=== PATIENT | female | born 1935 | race Caucasian/White ===

== ENCOUNTER → 2018-12-24 07:53 | Outpatient (CLI) | payer MEDICARE, SELFPAY ==
[2018-12-14 14:59] VITALS: BMI 30.5
[2018-12-17 11:49] LABS: Anion Gap 6 (5-15); BUN 18 mg/dL (7-18); BUN/Creat Ratio 18.4 RATIO (10-20); Calcium,Total 8.9 mg/dL (8.5-10.1); Chloride 106 mmol/L (98-107); Creatinine, Serum 0.98 mg/dL (0.55-1.02); EST Glomerular Filtration Rate 58 mL/min (>60); Est Glom Filt Rate - Afr Amer 70 mL/min (>60); Glucose 155 mg/dL (74-106); Potassium 4.2 mmol/L (3.5-5.1); Sodium Level 139 mmol/L (136-145)
--- NOTE | 2018-12-24 07:55 | CT_ITS ---
STUDY: CTA OF THE ABDOMINAL AORTA AND BILATERAL LOWER EXTREMITIES REASON FOR EXAM: Female, 83 years old. Infection of the right toe. RADIATION DOSAGE (If Supplied By Facility): CTDIvol = ( 9.97 ) mGy, DLP = ( 1158.89 ) mGycm TECHNIQUE: Axial CT angiography multi-detector data acquisition was obtained from the dome of the liver to the level of the ankles following intravenous administration of 100 IV Ultravist 370. Axial images and MIP images were reconstructed from the axial data set. Post-processing of the angiographic images was performed, with multiplanar reformation and 3D reconstruction. Individualized dose optimization techniques were used for this CT. TECHNICAL QUALITY: Good COMPARISON: None. Descriptors of Narrowing: None (0%) Mild (< 50%) Moderate (50-70%) Severe (70-90%) Subtotal/Total Occlusion (90-100%) Non-Evaluable (technically non-diagnostic FINDINGS: Diffuse fatty infiltration of the liver. Small hiatal hernia. Coronary artery calcifications. Bilateral renal cortical thinning with a small bilateral renal cysts. Abdominal aorta: Nonstenotic calcified atherosclerotic plaques. Celiac and superior mesenteric arteries: Atherosclerotic calcification at the origin of both the celiac and superior mesenteric arteries. Inferior mesenteric artery: Not visualized. Right renal artery(arteries): Moderate stenotic plaque formation at the origin of the right renal artery. Left renal artery(arteries): Severe narrowing at the origin of the left renal artery. Right common iliac artery: Multiple calcified atherosclerotic plaque causing focal areas of tight narrowing. Right external iliac artery: Multiple atherosclerotic plaque formation causing moderate to severe stenosis. Right internal iliac artery: No demonstrated narrowing. Left common iliac artery: Moderate degree of calcific plaques causing mild narrowing. Left external iliac artery: Mild narrowing due to multiple calcific plaques. Left internal iliac artery: No demonstrated narrowing. RIGHT LOWER EXTREMITY Right common femoral artery: There is occlusion distally. Right profundus femoris: No demonstrated narrowing. Right superficial femoral: Occlusion throughout its length. Right popliteal artery: Reconstruction of the popliteal artery just proximal to the knee joint with multiple areas of tight stenosis. Right tibioperoneal trunk: The tibioperoneal trunk is patent although multiple tight stenoses are seen. Right anterior tibial artery: No demonstrated narrowing. Right posterior tibial artery: No demonstrated narrowing. Right peroneal artery: Multiple areas of tight stenosis throughout its course. LEFT LOWER EXTREMITY Left common femoral artery: No demonstrated narrowing. Left profundus femoris: No demonstrated narrowing. Left superficial femoral: Occlusion of the superficial femoral artery at its origin with reconstitution of the popliteal artery. Left popliteal artery: Multiple stenoses of the popliteal artery without significant stenosis. Left tibioperoneal trunk: No demonstrated narrowing. Left anterior tibial artery: No demonstrated narrowing. Left posterior tibial artery: No demonstrated narrowing. Left peroneal artery: No demonstrated narrowing. CT/CTA Abd w/Runoff W/WO Contrast IMPRESSION: Occlusion of both superficial femoral arteries with three-vessel runoff in the left lower extremity and two-vessel runoff in the right lower extremity. Electronically Signed: Tobias Fuentes, at 11:21 EDT , Service support ,
== END ==
PROVIDERS: Family Provider Internal Medicine; PCP Internal Medicine; Referring Provider Surgery; Visit Provider Surgery
DX: Z01.818 Encounter for other preprocedural examination (principal); I99.8 Other disorder of circulatory system; I73.9 Peripheral vascular disease, unspecified
CPT/HCPCS: 36415; 75635; 80048; Q9967

== ENCOUNTER 2019-01-12 07:15 | Day surgery (SDC) | payer MEDICARE, SELFPAY ==
[2018-12-28 15:10] VITALS: BMI 30.5
--- NOTE | 2019-01-11 12:10 | RAD_ITS ---
STUDY: X-RAY CHEST REASON FOR EXAM: Female, 84 years old. Pre-op cardiac catheterization. TECHNIQUE: PA and lateral views of the chest. COMPARISON: None. FINDINGS: The lungs are well expanded. There is diffuse pulmonary fibrosis without focal mass or infiltrate. There is no demonstrated pleural abnormality. Normal size heart. Normal mediastinum and rosemary. Normal visualized pulmonary arteries. There is atherosclerotic calcification of the aortic arch with tortuosity. There is demineralization of the osseous structures. There is degenerative osteoarthritis of the bilateral shoulders. There is no demonstrated abnormality of the visualized soft tissue structures of the upper abdomen. RAD/Chest PA and Lateral IMPRESSION: 1. Findings suggestive of pulmonary fibrosis. 2. Atherosclerotic thoracic aorta. Electronically Signed: Lyle Levin DO at 17:35 EDT Tel [phone], Service support ,
[2019-01-11 12:26] LABS: International Normalized Ratio 1.1; Prothrombin Time (Protime)PT. 13.6 SECONDS (11.7-14.9)
[2019-01-11 12:27] LABS: Absolute Lymphocyte Count 1.36 X10^3/ul (0.83-4.51); Absolute Neutrophil Count 6.5 X10^3/uL (2.0-7.7); Basophil# 0.06 X10^3/uL; Basophil% 0.7 % (0-1); Eosinophil# 0.35 X10^3/uL; Eosinophils% 3.9 % (0-5); Hematocrit 35.6 % (37-47); Hemoglobin 11.5 g/dl (12.0-15.0); Lymphocyte # 1.36 X10^3/ul (4.0); Lymphocyte % 15.2 % (19-41); Mean Corp Hgb Conc 32.3 g/gl (32-36); Mean Corpuscular Hgb 30.6 pg (27.0-32.0); Mean Corpuscular Volume 94.7 fL (81-99); Mean Platelet Vol. 11.2 fl (6.2-12.0); Monocyte# 0.62 X10^3/uL; Monocyte% 6.9 % (0-10); Neutrophil # 6.54 X10^3/uL (2.7-7.7); Neutrophil % 73.1 % (47-70); Partial Thromboplast Time 27.1 Seconds (24.1-36.2); Platelet Count 188 K/mm3 (150-450); RBC Distribution Width CV 13.5 % (11.6-14.6); RBC Distribution Width SD 46.8 fl (35.1-43.9); Red Blood Count 3.76 M/mm3 (4.2-5.4)
[2019-01-11 12:29] LABS: POSITIVE COUNT NO; POSITIVE DIFFERENTIAL NO; POSITIVE MORPHOLOGY NO
[2019-01-11 13:29] LABS: Anion Gap 10 (5-15); BUN 33 mg/dL (7-18); BUN/Creat Ratio 29.5 RATIO (10-20); Calcium,Total 8.7 mg/dL (8.5-10.1); Chloride 105 mmol/L (98-107); Creatinine, Serum 1.12 mg/dL (0.55-1.02); EST Glomerular Filtration Rate 49 mL/min (>60); Est Glom Filt Rate - Afr Amer 60 mL/min (>60); Glucose 176 mg/dL (74-106); Potassium 4.4 mmol/L (3.5-5.1); Sodium Level 136 mmol/L (136-145)
[2019-01-11 13:59] VITALS: BMI 30.4
[2019-01-12 07:55] LABS: Bedside Glucose 182 mg/dL (70-110)
--- NOTE | 2019-01-12 10:09 | CL.D_ITS ---
Patient Name: YO GONZALEZ Study Date: 01/12/2019 Performing: Ricky Yanez MD Ht: 61.81 inches 157 cm : 1935 Wt: 167.55 lbs 76 kg Age: 84 Gender: female BSA: 1.77 PROCEDURE(S) PERFORMED LP78-BCO/COR CLINICAL PROFILE AND INDICATIONS Indications: Suspected CAD Heart Failure: None Stress/Imaging Date: 01/05/2019Stress Test with SPECT MPI: Positive High Risk Angina Classification Anginal Classification w/in 2 Weeks: CCS III CAD Presentations: Other: Dyspnea; Fatigue CONCLUSIONS [place] Multivessel CAD RECOMMENDATIONS Risk factor modification Medical therapy DESCRIPTION OF PROCEDURE The patient arrived to the procedure lab. The risks and benefits of the procedure as well as a full d escription of our services here and current unavailability of surgical backup were fully explained to the patient and/or their significant other prior to the catheterization. The Timeout was completed, verifying the correct patient and procedure. The patient's procedural site was prepped and draped in the usual fashion. Local anesthetic was given subcutaneously to right radial region with Lidocaine 2% . Using a modified Seldinger technique, arterial access was obtained via the right radial artery, a 6 Fr sheath was inserted. Left Coronary Artery selective angiography was performed in multiple views u sing a 5 Fr. 4.0 [place] catheter. Right Coronary Artery selective angiography was then performed in mu ltiple views using a 5 Fr. 3DRC (Bar) catheter.The arterial sheath was pulled and a TR Band was applied for hemostasis, 15 cc of air CORONARY ANGIOGRAPHY DOMINANCE: Right Dominant LEFT HEART ASSESSMENT Left Ventricular Ejection Fraction: Not assessed LEFT MAIN: Mild luminal irregularities LEFT ANTERIOR DECENDING ARTERY: PROX LAD: Moderate calcification, Pre S/P and s/p DX: Eccentric: 85 % Stenosis MID LAD: Mild luminal irregularities DIAGONAL 1: Proximal - Pre Bifurcation: sutotally occluded CIRCUMFLEX ARTERY: small - nondominant: mild luminal irregularities RIGHT CORONARY ARTERY: Severe calcification RPDA / RAVS / RPL: small caliber vessels: receiving left to right collateral flow COLLATERAL FLOW: Collateral flow from Left to Right COMPLICATIONS No Complications PROCEDURE MEDICATIONS Versed 1 mg IV Fentanyl 25 mcg IV Fentanyl 25 mcg IV Oxygen: 2 L/min via nasal cannula SUMMARY OF HEMODYNAMIC DATA Time AIR REST ECG 07:56:13 AO 130/72 (94) SA 09:03:07 Signed By Ricky Yanez MD On 01/12/2019 10:08:41 AM Ricky Yanez MD
== END 2019-01-12 13:00 | disposition home or self-care (01) ==
PROVIDERS: Physician Assistant Medical; Family Provider Internal Medicine; PCP Internal Medicine; Referring Provider Internal Medicine Cardiovascular Disease; Visit Provider Internal Medicine Cardiovascular Disease
DX: I25.10 Atherosclerotic heart disease of native coronary artery without angina pectoris (principal); I10 Essential (primary) hypertension; E78.5 Hyperlipidemia, unspecified; I73.9 Peripheral vascular disease, unspecified; E11.9 Type 2 diabetes mellitus without complications; Z79.82 Long term (current) use of aspirin; J84.10 Pulmonary fibrosis, unspecified; I70.0 Atherosclerosis of aorta; R94.39 Abnormal result of other cardiovascular function study
CPT/HCPCS: 36415; 71046; 80048; 82962; 85025; 85610; 85730; 93454; 99152; 99153; J7040; C1769; C1894; Q9967

== ENCOUNTER → 2019-01-14 14:38 | Outpatient (CLI) | payer MEDICARE, SELFPAY ==
[2019-01-11 13:59] VITALS: BMI 30.4
[2019-01-14 16:02] LABS: Anion Gap 9 (5-15); BUN 45 mg/dL (7-18); BUN/Creat Ratio 33.3 RATIO (10-20); Calcium,Total 8.9 mg/dL (8.5-10.1); Chloride 100 mmol/L (98-107); Creatinine, Serum 1.35 mg/dL (0.55-1.02); EST Glomerular Filtration Rate 40 mL/min (>60); Est Glom Filt Rate - Afr Amer 48 mL/min (>60); Glucose 163 mg/dL (74-106); Potassium 4.2 mmol/L (3.5-5.1); Sodium Level 134 mmol/L (136-145)
== END ==
PROVIDERS: Family Provider Internal Medicine; PCP Internal Medicine; Referring Provider Internal Medicine Cardiovascular Disease; Visit Provider Internal Medicine Cardiovascular Disease
DX: I73.9 Peripheral vascular disease, unspecified (principal)
CPT/HCPCS: 36415; 80048

== ENCOUNTER 2019-01-24 20:32 | Observation (INO) | payer MEDICARE, SELFPAY ==
[2019-01-11 13:59] VITALS: BMI 30.4
[2019-01-24] VITALS (8 sets, daily range): BP systolic 75–162; BP diastolic 46–69; PULSE 77–104; RESP 14–20; TEMP 36.1–37.1; O2SAT 88–100; BMI 32.8
--- NOTE | 2019-01-24 20:27 | CT_ITS ---
We are attempting to reach MARGARITA CHANEY to discuss findings. An addendum with communication details will be sent when the communication is complete. STUDY: CT ABDOMEN AND PELVIS WITHOUT CONTRAST REASON FOR EXAM: Female, 84 years old. Abdominal pain. RADIATION DOSAGE (If Supplied By Facility): CTDIvol = ( 11.92 ) mGy, DLP = ( 628.15 ) mGycm TECHNIQUE: Transaxial images were obtained from the dome of the diaphragm to the symphysis pubis without oral contrast, and without intravenous contrast. Sagittal and coronal images were reconstructed. Individualized dose optimization techniques were used for this CT. COMPARISON: None. FINDINGS: Right lower lung consolidation. There are coronary artery and valvular calcifications of the heart. There is moderate pneumoperitoneum. There is mild to moderate ascites in the abdomen and pelvis. Normal liver. Normal gallbladder and extrahepatic biliary system. Normal spleen. Normal pancreas. Normal bilateral adrenal glands. Normal right kidney. Normal left kidney. Defect consistent with ulcer of the posterior wall of the stomach, series 2 image 78/192. Normal small intestine. Normal colon. The appendix is visualized and appears normal. There is diffuse atherosclerotic calcification of the abdominal aorta, without a demonstrated aneurysm. Normal inferior vena cava. Normal retroperitoneum. Normal urinary bladder. There is atrophy of the uterus. There is a pessary in the vagina. Normal abdominal wall. There are diffuse degenerative changes of the visualized lumbar spine. CT/Abdomen/Pelvis without Cont IMPRESSION: Pneumoperitoneum with probable ruptured gastric ulcer. Right lower lung consolidation. Atherosclerosis. Electronically Signed: Rick Schultz MD at 21:34 EDT , Service support ,
[2019-01-24] MEDS: HYDROmorphone 1 MG/ML Syringe IV (20:37)
--- NOTE | 2019-01-24 21:24 | HP.PCM_ITS ---
Problem List (1) Intractable abdominal pain Status: Acute (2) Congestive heart failure Status: Acute (3) ROSETTA (acute kidney injury) Status: Acute History of Present Illness Date of Admission: 01/24/19 Chief Complaint: abnormal outpatient lab This is an 84-year old female with a significant history of severe PAD; carotid artery disease s/p carotid endarectomy; diabetes mellitus; hypothyroidism; GERD; HTN;former smoker; and CAD and who had a cardiac cath on 01/12/2019 who was transferred from outside hospital ED because of the patient's preference secondary to she having a heart cath with Dr. Yanez, at our Hospital. At presentation at our Hospital ([facility]) Patient reported that she was told by PCP to go to emergency department because of outpatient abnormal labs showing kidney injury. On presentation to our hospital the patient complained of excruciating generalized abdominal pain more prominent in her lower abdomen. She reported that for over a week she has not had good bowel movement. She reported that she had some small bowel movement on the day of admission. However she denies passing gas. At the emergency department at the outside hospital patient was given morphine for her abdominal pain. However she continued to be in pain at our hospital and she thought that morphine was not effective for her pain. At the outside hospital ED patient BNP was noted to be 7000. Her creatinine was 1.51 with a baseline creatinine of around 1. Sodium was 133. Her troponin was elevated at 0.141. Chest x-ray was consistent with CHF Reportedly EKG was unchanged at outside hospital. Patient received Lasix 40 mg at the outside hospital ED. In regards to her cardiac catheterization on 01/12/2019 it was remarkable for 85% stenosis in the proximal LAD. Proximal pre-bifurcation of diagonal was totally occluded. Left ventricular ejection fraction could not be assessed. In regards to peripheral artery disease, patient supposed to have vascular s urgery. She has occlusion of bilateral femoral artery and she sees Dr. Perdomo Past Medical History Medical History: Medical History (Last Reviewed 01/24/19 @ 22:18 by Cody Peralta MD) PAD (peripheral artery disease) (Acute) I73.9 Acid reflux K21.9 Diabetes E11.9 Heart attack I21.9 Heart disease I51.9 History of back problems Leukemia C95.90 PVD (peripheral vascular disease) I73.9 Thyroid disease E07.9 Hypertension I10 Allergies No Known Allergies Allergy (Verified 12/28/18 15:10) Home Medications: Ambulatory Orders Medication Instructions Recorded Lactobacillus acidophilus capsule 10 mg PO DAILY 12/14/18 ammonium lactate 12 % lotion 1 applic TOPICAL QD-BID 12/14/18 aspirin 81 mg chewable tablet 81 mg PO DAILY 12/14/18 atorvastatin 80 mg tablet 80 mg PO DAILY 12/14/18 biotin 2,500 mcg capsule 2.5 mg PO DAILY 12/14/18 bisoprolol 2.5 1 tab PO DAILY 12/14/18 mg-hydrochlorothiazide 6.25 mg tablet clopidogrel 75 mg tablet 75 mg PO DAILY 12/14/18 enalapril maleate 20 mg tablet 20 mg PO DAILY 12/14/18 glipizide 5 mg tablet 5 mg PO DAILY 12/14/18 ibrutinib 140 mg capsule 140 mg PO DAILY 12/14/18 levothyroxine 75 mcg capsule 75 mcg PO DAILY 12/14/18 metformin 500 mg tablet 500 mg PO BID 12/14/18 nitroglycerin 0.4 mg sublingual 0.4 mg SUBLINGUAL Q5-15M PRN 12/14/18 tablet ranitidine 150 mg tablet 150 mg PO BID tab 12/14/18 Cholecalciferol (VIT D3) [Vitamin 1,000 unit PO DAILY 01/11/19 D] Co Q-10 1 tablet PO QODAY 01/11/19 Loperamide HCl [Imodium A-D] 1 tablet PO QODAY PRN 01/11/19 Multivitamin 1 tablet PO QODAY 01/11/19 Sour Tsai Extract [Tart Tsai 1 tablet PO QODAY 01/11/19 Extract] Turmeric 1 tablet PO QODAY 01/11/19 Surgical History: Surgical History (Last Reviewed 12/28/18 @ 15:09 by Verenice Corado) History of femoropopliteal bypass Z98.890 History of left-sided carotid endarterectomy Z98.890 Lives: Alone Smoking Status: Former smoker Alcohol: None - *Family History Maternal Family History: Family History (Last Reviewed 01/24/19 @ 22:18 by Cody Peralta MD) Mother Colon cancer Daughter Diabetes Father Cancer Diabetes Review of Systems Constitutional: Denies: Chills, Fever, Weight Change HEENT: Denies: Head Aches, Sinus Congestion, Sinus Drainage Cardiovascular: Reports: Edema - bilateral legs. Denies: Chest Pain, Palpitations Respiratory: Reports: Shortness of Breath. Denies: Cough, Sputum production Gastrointestinal: Reports: Abdominal Pain, Constipation Genitourinary: Denies: Dysuria Musculoskeletal: Denies: Joint Pain, Joint Tenderness Skin: Denies: Rash, Wounds Neurological: Denies: Numbness, Tingling, Focal weakness Psychiatric: Denies: Anxiety, Depression, Homicidal Ideations, Suicidal Ideations Hematologic/ Lymphatic: Denies: Easy Bruising, Easy Bleeding VTE Information - Inpt Only VTE Present on Admission: No VTE Mechan Device Prophylaxis: SCD's VTE Pharm Prophylaxis ordered?: No Patient Problems: Active and Suspected Problems (Last Reviewed 01/24/19 @ 22:18 by Cody Peralta MD) Intractable abdominal pain (Acute) Congestive heart failure (Acute) ROSETTA (acute kidney injury) (Acute) - Physical Exam General: Alert, Oriented x3, Cooperative, - - In acute distress secondary to abdominal pain HEENT: Atraumatic, PERRLA, EOMI, Normocephalic Neck: Supple, No JVD, Negative Carotid Bruits Lungs: Diminished Cardiovascular: Regular rate, - - Distant heart sounds Abdomen: Bowel Sounds Present, Distended - on lower abdomen, Obese, Tender Extremities: Capillary Refill Less than 3 Seconds, Edema - bilateral lower extremities. Skin: - - scaly rash on back Musculoskeletal: No Tenderness to Palpation of Joints or Extremities Neurological: Neuro grossly intact Psych/Mental Status: Anxious Vital Signs Temp Pulse Resp BP Pulse Ox 97.5 F L 104 H 20 H 162/69 H 92 01/24/19 20:16 01/24/19 20:16 01/24/19 21:07 01/24/19 20:16 01/24/19 21:07 Oxygen Flow Rate (L/min) 6 Oxygen Delivery Method Nasal Cannula Weight: 81.3 kg Body Mass Index (BMI) 32.8 Assessment/Plan All Active Problems (Last Reviewed 01/24/19 @ 22:18 by Cody Peralta MD) Intractable abdominal pain (Acute) Congestive heart failure (Acute) ROSETTA (acute kidney injury) (Acute) PAD (peripheral artery disease) (Acute) This is an 84-year old female with a significant history of severe PAD; carotid artery disease s/p carotid endarectomy; diabetes mellitus; hypothyroidism; GERD; HTN;former smoker; and CAD and who had a cardiac cath on 01/12/2019 who was transferred from outside hospital ED for management of congestive heart failure after presenting with a kidney injury; and found [id number] to have radiographic evidence of Pneumoperitoneum with probable ruptured gastric ulcer; and right lower lung consolidation Pneumoperitoneum with probable ruptured gastric ulcer CT scan of abdomen and pelvis without contrast because of ROSETTA showed pneumoperitoneum with probable ruptured gastric ulcer. Dilaudid IV ordered PRN Zofran ordered We will keep patient strictly n.p.o. We will get H&H now and then H&H every 6 hours. Will start patient on Protonix bolus and drip. No chemical chemoprophylaxis at this time because of probable ruptured gastric ulcer. Case was discussed with Dr. Jhonny Brown ,General surgeon. Congestive heart failure Received Lasix and emergency department at outside hospital. Schedule patient on Lasix 40 mg IV twice daily. Consider de-escalating Lasix secondary to n.p.o. status. Check BMP and replace potassium as necessary. Fluid restriction of thousand 1,500 mL's per day. Of note patient is n.p.o. for now because of pneumoperitoneum with probable ruptured gastric ulcer while visiting general surgery consult. Daily weights Strict intake and output. N.p.o. for now because of pneumoperitoneum with probable ruptured gastric ulcer. This patient is a known patient of Dr. Yanez, consider discussing the case with Dr. Yanez,. Trend BMP. Importantly patient is on home enalapril, a guideline medication drug for heart failure if with reduced EF. Will hold for now because of ROSETTA. Consider resuming when kidney function improves. In any case patient will be n.p.o. for now. ECHO ordered. ROSETTA Creatinine at outside hospital was 1.51. Baseline creatinine around 1. Likely secondary to cardiorenal syndrome. Lasix as above. Community Acquired Pneumonia Radiographic evidence of right lower lobe pneumonia Started on azithromycin and Ceftriaxone. Elevated troponin. Troponin at outside hospital was 0.141. This could be secondary to type II TX from demand ischemia. Trend troponin. Continue aspirin, Plavix and Lipitor. CAD/PAD Aspirin, Plavix and Lipitor on hold due to npo status GERD Ranitidine held. Started on protonix drip and bolus due to probable ruptured gastric ulcer. Diabetes mellitus Hold metformin since it is too early in admission; patient is at risk for lactic acidosis; plus patient is n.p.o. for now. Glipizide hold due to npo status Accu-Chek q. before meals at bedtime with correction scale. Seborrheic keratosis Home ammonium lactate cream continued. Intertrigo Patient with evidence of redness in left inguinal folds. Nystatin ordered for inguinal folds. CLL On home Ibrutinib. NPO for now. Please resume when patient is no longer npo DVT Prophylaxis No chemical trauma prophylaxis at this time due to probable ruptured gastric ulcer. SCD ordered. Code Visit Inpatient E&M: [id number] Init Hosp L3
[2019-01-24 22:01] LABS: Thyroid Stim Hormone (TSH) 4.64 uIU/mL (0.358-3.74)
--- NOTE | 2019-01-24 22:37 | PCM.PN.BLA ---
Progress Note While I was present Dr. Brown discussed prognosis and patient's high risk of abdominal surgery in the setting of probable perforated ulcer and pneumohydroperitoneum. Family agreed that patient should be hospice. Will discontinue all orders except Dilaudid IV for comfort care; and ativan IV prn for anxiety. Will transfer to hospice.
--- NOTE | 2019-01-24 22:37 | PCM.CONS.GEN ---
Problem List (1) Perforated gastric ulcer Status: Acute Qualifiers: Gastric ulcer chronicity: acute Qualified Code(s): K25.1 - Acute gastric ulcer with perforation Reason for Consult Date of Consultation: 01/24/19 Reason for Consultation: Perforated gastric ulcer History of Present Illness: The patient is a 84 year old F who presented to outside hospital with abdominal pain. Her family member reports that the pain started approximately 6 hours ago. She was seen by her PCP today and was sent to the emergency room and transferred to our hospital. I was unable to obtain any history or review of systems from the patient as she was obtunded. Family reports that abdominal pain started today. Past Medical History Medical History: Medical History (Last Reviewed 01/24/19 @ 22:18 by Cody Peralta MD) PAD (peripheral artery disease) (Acute) I73.9 Acid reflux K21.9 Diabetes E11.9 Heart attack I21.9 Heart disease I51.9 History of back problems Leukemia C95.90 PVD (peripheral vascular disease) I73.9 Thyroid disease E07.9 Hypertension I10 Allergies No Known Allergies Allergy (Verified 12/28/18 15:10) Home Medications: Ambulatory Orders Medication Instructions Recorded Lactobacillus acidophilus capsule 10 mg PO DAILY 12/14/18 ammonium lactate 12 % lotion 1 applic TOPICAL QD-BID 12/14/18 aspirin 81 mg chewable tablet 81 mg PO DAILY 12/14/18 atorvastatin 80 mg tablet 80 mg PO DAILY 12/14/18 biotin 2,500 mcg capsule 2.5 mg PO DAILY 12/14/18 bisoprolol 2.5 1 tab PO DAILY 12/14/18 mg-hydrochlorothiazide 6.25 mg tablet clopidogrel 75 mg tablet 75 mg PO DAILY 12/14/18 enalapril maleate 20 mg tablet 20 mg PO DAILY 12/14/18 glipizide 5 mg tablet 5 mg PO DAILY 12/14/18 ibrutinib 140 mg capsule 140 mg PO DAILY 12/14/18 levothyroxine 75 mcg capsule 75 mcg PO DAILY 12/14/18 metformin 500 mg tablet 500 mg PO BID 12/14/18 nitroglycerin 0.4 mg sublingual 0.4 mg SUBLINGUAL Q5-15M PRN 12/14/18 tablet ranitidine 150 mg tablet 150 mg PO BID tab 12/14/18 Cholecalciferol (VIT D3) [Vitamin 1,000 unit PO DAILY 01/11/19 D] Co Q-10 1 tablet PO QODAY 01/11/19 Loperamide HCl [Imodium A-D] 1 tablet PO QODAY PRN 01/11/19 Multivitamin 1 tablet PO QODAY 01/11/19 Sour Tsai Extract [Tart Tsai 1 tablet PO QODAY 01/11/19 Extract] Turmeric 1 tablet PO QODAY 01/11/19 Surgical History: Surgical History (Last Reviewed 12/28/18 @ 15:09 by Verenice Corado) History of femoropopliteal bypass Z98.890 History of left-sided carotid endarterectomy Z98.890 Lives: Alone Smoking Status: Former smoker Alcohol: None - *Family History Maternal Family History: Family History (Last Reviewed 01/24/19 @ 22:18 by Cody Peralta MD) Mother Colon cancer Daughter Diabetes Father Cancer Diabetes Review of Systems Unable to obtain accurate/complete ROS d/t: Patient obtunded Patient Problems: Active and Suspected Problems (Last Reviewed 01/24/19 @ 22:18 by Cody Peralta MD) Intractable abdominal pain (Acute) Congestive heart failure (Acute) ROSETTA (acute kidney injury) (Acute) Perforated gastric ulcer (Acute) - Physical Exam General: Lethargic, - - Obtunded with apneic breathing HEENT: Atraumatic Cardiovascular: Tachycardic Abdomen: Distended, Guarding, Rigid Extremities: - - Cyanosis of right lower extremity Vital Signs Temp Pulse Resp BP Pulse Ox 98.7 F 90 18 101/59 L 93 01/24/19 22:26 01/24/19 22:26 01/24/19 22:26 01/24/19 22:26 01/24/19 22:26 Oxygen Flow Rate (L/min) 3 Oxygen Delivery Method Nasal Cannula Weight: 179 lb 3.773 oz Body Mass Index (BMI) 32.8 Laboratory Tests Past 24 Hrs 01/24/19 21:25 Troponin I 0.131 H TSH 4.64 H Clinical Impression(s) from Imaging Studies Abdomen/Pelvis CT 01/24/19 20:27 IMPRESSION: Pneumoperitoneum with probable ruptured gastric ulcer. Right lower lung consolidation. Atherosclerosis. Electronically Signed: Rick Schultz MD at 21:34 EDT , Service support , ADDENDUM: 01/24/192145 IMPRESSION: Pneumoperitoneum with probable ruptured gastric ulcer. Right lower lung consolidation. Atherosclerosis. N.B. : The above information has been verbally conveyed by Rick Schultz MD to Libertad Damico RN, on 01/24/2019 21:39:06 (ET). Electronically Signed: Rick Schultz MD at 21:34 EDT , Service support , Assessment/Plan All Active Problems (Last Reviewed 01/24/19 @ 22:18 by Cody Peralta MD) Intractable abdominal pain (Acute) Congestive heart failure (Acute) ROSETTA (acute kidney injury) (Acute) Perforated gastric ulcer (Acute) PAD (peripheral artery disease) (Acute) 84-year-old female with perforated viscus likely perforated gastric ulcer 1. Patient was transferred here with abdominal pain and CT scan showed free air and copious fluid in the abdomen with likely perforated posterior gastric ulcer. When I saw the patient she was obtunded and unable to answer any questions. She was also tachycardic and blood pressure. Lower than it was just 30 minutes ago. Patient had recent heart catheterization last week which showed right main obstruction as well as LAD high-grade stenosis. 2. I discussed the CAT scan findings with the patient's daughter. I discussed that she was having sepsis from perforated viscus and she had copious air and fluid inside the abdomen. The patient's physical exam showed a rigid distended abdomen. I discussed the patient's status with the patient's daughter. The patient is DNR CC and I discussed how aggressive the patient would want to be with her daughter. Her daughter reported that she would not want life-saving aggressive treatment. I discussed that the options at this point would be to consult hospice and pursue pain management versus operative management. I discussed operative management may include a laparotomy and possibly gastrectomy. I also discussed that given her recent heart catheterization results showing occluded right main as well as 85% LAD obstruction she is very high risk of cardiac complications. I also discussed that postoperatively she would remain intubated in the ICU for an undetermined amount of time and that she has a high morbidity and mortality risk. At this time the patient's daughter believes that her mother's wishes would be not to pursue surgical management and she would like us to consult hospice. I saw the patient in association with the hospitalist as well and hospice will be ordered and pain management will be pursued to keep the patient comfortable. At this time no surgery will be pursued. Jhonny Brown MD Pager: [facility] [address] [place] [address], [address] [place] [address] Office:
--- NOTE | 2019-01-24 22:44 | CON.PCM_ITS ---
Problem List (1) Perforated gastric ulcer Status: Acute Qualifiers: Gastric ulcer chronicity: acute Qualified Code(s): K25.1 - Acute gastric ulcer with perforation Reason for Consult Date of Consultation: 01/24/19 Reason for Consultation: Perforated gastric ulcer History of Present Illness: The patient is a 84 year old F who presented to outside hospital with abdominal pain. Her family member reports that the pain started approximately 6 hours ago. She was seen by her PCP today and was sent to the emergency room and transferred to our hospital. I was unable to obtain any history or review of systems from the patient as she was obtunded. Family reports that abdominal pain started today. Past Medical History Medical History: Medical History (Last Reviewed 01/24/19 @ 22:18 by Cody Peralta MD) PAD (peripheral artery disease) (Acute) I73.9 Acid reflux K21.9 Diabetes E11.9 Heart attack I21.9 Heart disease I51.9 History of back problems Leukemia C95.90 PVD (peripheral vascular disease) I73.9 Thyroid disease E07.9 Hypertension I10 Allergies No Known Allergies Allergy (Verified 12/28/18 15:10) Home Medications: Ambulatory Orders Medication Instructions Recorded Lactobacillus acidophilus capsule 10 mg PO DAILY 12/14/18 ammonium lactate 12 % lotion 1 applic TOPICAL QD-BID 12/14/18 aspirin 81 mg chewable tablet 81 mg PO DAILY 12/14/18 atorvastatin 80 mg tablet 80 mg PO DAILY 12/14/18 biotin 2,500 mcg capsule 2.5 mg PO DAILY 12/14/18 bisoprolol 2.5 1 tab PO DAILY 12/14/18 mg-hydrochlorothiazide 6.25 mg tablet clopidogrel 75 mg tablet 75 mg PO DAILY 12/14/18 enalapril maleate 20 mg tablet 20 mg PO DAILY 12/14/18 glipizide 5 mg tablet 5 mg PO DAILY 12/14/18 ibrutinib 140 mg capsule 140 mg PO DAILY 12/14/18 levothyroxine 75 mcg capsule 75 mcg PO DAILY 12/14/18 metformin 500 mg tablet 500 mg PO BID 12/14/18 nitroglycerin 0.4 mg sublingual 0.4 mg SUBLINGUAL Q5-15M PRN 12/14/18 tablet ranitidine 150 mg tablet 150 mg PO BID tab 12/14/18 Cholecalciferol (VIT D3) [Vitamin 1,000 unit PO DAILY 01/11/19 D] Co Q-10 1 tablet PO QODAY 01/11/19 Loperamide HCl [Imodium A-D] 1 tablet PO QODAY PRN 01/11/19 Multivitamin 1 tablet PO QODAY 01/11/19 Sour Tsai Extract [Tart Tsai 1 tablet PO QODAY 01/11/19 Extract] Turmeric 1 tablet PO QODAY 01/11/19 Surgical History: Surgical History (Last Reviewed 12/28/18 @ 15:09 by Verenice Corado) History of femoropopliteal bypass Z98.890 History of left-sided carotid endarterectomy Z98.890 Lives: Alone Smoking Status: Former smoker Alcohol: None - *Family History Maternal Family History: Family History (Last Reviewed 01/24/19 @ 22:18 by Cody Peralta MD) Mother Colon cancer Daughter Diabetes Father Cancer Diabetes Review of Systems Unable to obtain accurate/complete ROS d/t: Patient obtunded Patient Problems: Active and Suspected Problems (Last Reviewed 01/24/19 @ 22:18 by Cody Peralta MD) Intractable abdominal pain (Acute) Congestive heart failure (Acute) ROSETTA (acute kidney injury) (Acute) Perforated gastric ulcer (Acute) - Physical Exam General: Lethargic, - - Obtunded with apneic breathing HEENT: Atraumatic Cardiovascular: Tachycardic Abdomen: Distended, Guarding, Rigid Extremities: - - Cyanosis of right lower extremity Vital Signs Temp Pulse Resp BP Pulse Ox 98.7 F 90 18 101/59 L 93 01/24/19 22:26 01/24/19 22:26 01/24/19 22:26 01/24/19 22:26 01/24/19 22:26 Oxygen Flow Rate (L/min) 3 Oxygen Delivery Method Nasal Cannula Weight: 179 lb 3.773 oz Body Mass Index (BMI) 32.8 Laboratory Tests Past 24 Hrs 01/24/19 21:25 Troponin I 0.131 H TSH 4.64 H Clinical Impression(s) from Imaging Studies Abdomen/Pelvis CT 01/24/19 20:27 IMPRESSION: Pneumoperitoneum with probable ruptured gastric ulcer. Right lower lung consolidation. Atherosclerosis. Electronically Signed: Rick Schultz MD at 21:34 EDT , Service support , ADDENDUM: 01/24/192145 IMPRESSION: Pneumoperitoneum with probable ruptured gastric ulcer. Right lower lung consolidation. Atherosclerosis. N.B. : The above information has been verbally conveyed by Rick Schultz MD to Libertad Damico RN, on 01/24/2019 21:39:06 (ET). Electronically Signed: Rick Schultz MD at 21:34 EDT , Service support , Assessment/Plan All Active Problems (Last Reviewed 01/24/19 @ 22:18 by Cody Peralta MD) Intractable abdominal pain (Acute) Congestive heart failure (Acute) ROSETTA (acute kidney injury) (Acute) Perforated gastric ulcer (Acute) PAD (peripheral artery disease) (Acute) 84-year-old female with perforated viscus likely perforated gastric ulcer 1. Patient was transferred here with abdominal pain and CT scan showed free air and copious fluid in the abdomen with likely perforated posterior gastric ulcer. When I saw the patient she was obtunded and unable to answer any questions. She was also tachycardic and blood pressure. Lower than it was just 30 minutes ago. Patient had recent heart catheterization last week which showed right main obstruction as well as LAD high-grade stenosis. 2. I discussed the CAT scan findings with the patient's daughter. I discussed that she was having sepsis from perforated viscus and she had copious air and fluid inside the abdomen. The patient's physical exam showed a rigid distended abdomen. I discussed the patient's status with the patient's daughter. The patient is DNR CC and I discussed how aggressive the patient would want to be with her daughter. Her daughter reported that she would not want life-saving aggressive treatment. I discussed that the options at this point would be to consult hospice and pursue pain management versus operative management. I discussed operative management may include a laparotomy and possibly gastrectomy. I also discussed that given her recent heart catheterization results showing occluded right main as well as 85% LAD obstruction she is very high risk of cardiac complications. I also discussed that postoperatively she would remain intubated in the ICU for an undetermined amount of time and that she has a high morbidity and mortality risk. At this time the patient's daughter believes that her mother's wishes would be not to pursue surgical management and she would like us to consult hospice. I saw the patient in association with the hospitalist as well and hospice will be ordered and pain management will be pursued to keep the patient comfortable. At this time no surgery will be pursued. Jhonny Brown MD Pager: [facility] [address] [place] [address], [address] [place] [address] Office:
--- NOTE | 2019-01-24 22:44 | PCM.DC.SUM ---
Discharge Date and Diagnosis - Problem List Patient Problems: Active and Suspected Problems (Last Reviewed 01/24/19 @ 22:18 by Cody Peralta MD) Intractable abdominal pain (Acute) Congestive heart failure (Acute) ROSETTA (acute kidney injury) (Acute) Date of Admission: 01/24/19 Date of Discharge: 01/24/19 - Primary Discharge Diagnosis Active and Suspected Problems (Last Reviewed 01/24/19 @ 22:18 by Cody Peralta MD) Intractable abdominal pain (Acute) Congestive heart failure (Acute) ROSETTA (acute kidney injury) (Acute) Hospital Course and Treatment Imaging Results: 01/24/19 20:27 CT Abd [Abdomen/Pelvis without Cont] [CT] Urgent Summary of Care Provided: The patient is a 84 year old F who was transferred from outside hospital because of congestive heart failure. While at hospital she complained of excruciating abdominal pain for which CT of abdomen and pelvis were obtained. Patient was given IV dilaudid for pain. CT of her abdomen and pelvis showed probable gastric ulcer with air and fluid in her abdomen. Patient was a DNRCC. The case was discussed with General Surgeon, Dr. Brown who came to see patient. Patient who was initially alert and oriented became somnolent after the CT has been obtained. Due to patient many vascular comorbidities and CAD and DNR-CC, General Surgeon discussed patient's risk of surgery and her wishes. Family agreed that patient will prefer to be hospice. Hospice was consulted. Hospice nurse will evaluate patient. If accepted by Hospice patient will be discharged. Patient Problems: Active and Suspected Problems (Last Reviewed 01/24/19 @ 22:18 by Cody Peralta MD) Intractable abdominal pain (Acute) Congestive heart failure (Acute) ROSETTA (acute kidney injury) (Acute) - Physical Exam General: - - Obtunded HEENT: Atraumatic, Normocephalic Neck: Trachea Midline Lungs: Diminished, Using Accessory Muscles Cardiovascular: Regular rate, - - Distant heart sounds Abdomen: Bowel Sounds Present, Distended Extremities: Edema - bilateral feet to knees Skin: - - redness at left inguinal fold. Scaly rash on back. Musculoskeletal: No Muscle Wasting Neurological: - - Obtunded Psych/Mental Status: - - obtunded Vital Signs Temp Pulse Resp BP Pulse Ox 98.7 F 90 14 101/59 L 93 01/24/19 22:26 01/24/19 22:26 01/24/19 22:26 01/24/19 22:26 01/24/19 22:26 Oxygen Flow Rate (L/min) 3 Oxygen Delivery Method Nasal Cannula Weight: 81.3 kg Body Mass Index (BMI) 32.8 Laboratory Tests Past 24 Hrs 01/24/19 21:25 Troponin I 0.131 H TSH 4.64 H Home Medications: Medications to take at Discharge Lactobacillus acidophilus capsule 10 mg PO DAILY 12/14/18 ammonium lactate 12 % lotion 1 applic TOPICAL QD-BID 12/14/18 aspirin 81 mg chewable tablet 81 mg PO DAILY 12/14/18 atorvastatin 80 mg tablet 80 mg PO DAILY 12/14/18 biotin 2,500 mcg capsule 2.5 mg PO DAILY 12/14/18 bisoprolol 2.5 mg-hydrochlorothiazide 6.25 mg tablet 1 tab PO DAILY 12/14/18 clopidogrel 75 mg tablet 75 mg PO DAILY 12/14/18 enalapril maleate 20 mg tablet 20 mg PO DAILY 12/14/18 glipizide 5 mg tablet 5 mg PO DAILY 12/14/18 ibrutinib 140 mg capsule 140 mg PO DAILY 12/14/18 levothyroxine 75 mcg capsule 75 mcg PO DAILY 12/14/18 metformin 500 mg tablet 500 mg PO BID 12/14/18 nitroglycerin 0.4 mg sublingual tablet 0.4 mg SUBLINGUAL Q5-15M PRN 12/14/18 ranitidine 150 mg tablet 150 mg PO BID tab 12/14/18 Cholecalciferol (VIT D3) [Vitamin D] 1,000 unit PO DAILY 01/11/19 Co Q-10 1 tablet PO QODAY 01/11/19 Loperamide HCl [Imodium A-D] 1 tablet PO QODAY PRN 01/11/19 Multivitamin 1 tablet PO QODAY 01/11/19 Sour Tsai Extract [Tart Tsai Extract] 1 tablet PO QODAY 01/11/19 Turmeric 1 tablet PO QODAY 01/11/19 Primary Care Physician: Phyllis Gaspar MD [Primary Care Provider] - Medical Necessity - Tobacco Use Smoking Status: Former smoker Meaningful Use Info Meaningful Use Diagnoses (Choose all that apply): None applicable Code Visit Inpatient E&M: 24289 Disch Hosp
[2019-01-24 22:56] LABS: Bedside Glucose 179 mg/dL (70-110)
[2019-01-24] MEDS: 0.9% NaCl Peripheral Flush Adult/Peds IV (23:37)
[2019-01-24] MEDS: LORazepam 2 MG/ML Syringe 1 MG IV (23:37)
[2019-01-25 00:20] VITALS: BP 75/46; PULSE 77; RESP 18; TEMP 36.1; O2SAT 88
== END 2019-01-25 00:34 | disposition hospice, inpatient (51) ==
LOC: PCU 01-25 09:40
PROVIDERS: Hospitalist; Admitting Provider Hospitalist; Family Provider Internal Medicine; PCP Internal Medicine; Visit Provider Hospitalist
DX: R10.84 Generalized abdominal pain (principal); N17.9 Acute kidney failure, unspecified; I50.9 Heart failure, unspecified; I11.0 Hypertensive heart disease with heart failure; E03.9 Hypothyroidism, unspecified; K21.9 Gastro-esophageal reflux disease without esophagitis; E11.51 Type 2 diabetes mellitus with diabetic peripheral angiopathy without gangrene; I25.2 Old myocardial infarction; I25.10 Atherosclerotic heart disease of native coronary artery without angina pectoris; C91.10 Chronic lymphocytic leukemia of B-cell type not having achieved remission; Z87.891 Personal history of nicotine dependence; Z79.82 Long term (current) use of aspirin; Z79.02 Long term (current) use of antithrombotics/antiplatelets; Z79.84 Long term (current) use of oral hypoglycemic drugs; Z79.899 Other long term (current) drug therapy; L82.1 Other seborrheic keratosis; L30.4 Erythema intertrigo
CPT/HCPCS: 36415; 74176; 82962; 84443; 84484; 96374; 96375; A4216